=== PATIENT | female | born 1990 | race Caucasian/White ===

== ENCOUNTER 2019-09-07 14:40 | Emergency (ER) | payer OTHER ==
[2019-09-07] MEDS ORDERED: ONDANSETRON 4 MG TAB.RAPDIS PO ONE (15:28)
[2019-09-07] MEDS ORDERED: KETOROLAC TROMETHAMINE INJ/PF 30 MG/1 ML SDV IV ONE (15:28)
--- NOTE | 2019-09-07 15:32 | ER Document Report ---
ED Medical Screen (RME) - General Chief Complaint: Urinary Problem Stated Complaint: ABDOMINAL PAIN/BURNING DURING URINATION/BLOOD IN U Time Seen by Provider: 09/07/19 15:25 TRAVEL OUTSIDE OF THE [place] IN LAST 30 DAYS: No - HPI Notes: 09/07/19 15:28 Patient is a 29-year-old female with no significant past medical history who presents complaining of lower pelvic and lower abdominal pain that is pretty se erick and is worse with movement as well as bilateral flank pain that does not radiate. She has been having urinary burning as well with vaginal bleeding and odor. Denies . Denies fever. She does have nausea but no vomiting. Symptoms began yesterday. I have treated and performed a rapid initial assessment of this patient. A comprehensive ED assessment and evaluation of the patient, analysis of test results and completion of medical decision making process will be conducted by additional ED providers. PHYSICAL EXAMINATION: GENERAL: No acute respiratory distress, but patient appears to be in moderate discomfort in regards to her abdomen. Abdomen: Limited exam in triage, patient does have some mild guarding to her lower abdominal area/lower pelvic. She is tender to this area. Bilateral CVA tenderness noted. Vitals: Pulse 99 and O2 99% on RA. - Related Data Allergies/Adverse Reactions: Penicillins Allergy (Mild, Verified 09/07/19 15:24) latex Allergy (Verified 09/07/19 15:24) Past Medical History Pulmonary Medical History: Reports: Hx Asthma - Immunizations Immunizations up to date: Yes Hx Diphtheria, Pertussis, Tetanus Vaccination: Yes Physical Exam - Vital signs Vitals: Temp Pulse Resp BP Pulse Ox 98.3 F 123 H 20 115/87 H 83 L 09/07/19 15:22 09/07/19 15:22 09/07/19 15:22 09/07/19 15:22 09/07/19 15:22 Course - Vital Signs Vital signs: Temp Pulse Resp BP Pulse Ox 98.3 F 123 H 20 115/87 H 83 L 09/07/19 15:22 09/07/19 15:22 09/07/19 15:22 09/07/19 15:22 09/07/19 15:22
[2019-09-07 16:20] LABS: APPEARANCE,URINE SLIGHTLY-CLOUDY; BILIRUBIN,URINE NEGATIVE (NEGATIVE); COLOR,URINE YELLOW; GLUCOSE, URINE NEGATIVE (NEGATIVE); KETONES,URINE 20 mg/dL (NEGATIVE); LEUKOCYTE ESTERASE,URINE LARGE (NEGATIVE); NITRITE,URINE NEGATIVE (NEGATIVE); PROTEIN,URINE 100 mg/dL (NEGATIVE); URINE SPECIFIC GRAVITY 1.004; UROBILINOGEN,URINE NEGATIVE mg/dL (<2.0)
[2019-09-07 16:33] LABS: ALBUMIN 4.7 g/dL (3.5-5.0); ALKALINE PHOSPHATASE 69 U/L (38-126); ANION GAP 14 (5-19); ASPARTATE AMINO TRANSFERASE 20 U/L (14-36); BILIRUBIN,DIRECT 0.2 mg/dL (0.0-0.4); BILIRUBIN,TOTAL 0.7 mg/dL (0.2-1.3); BLOOD UREA NITROGEN 5 mg/dL (7-20); CALCIUM 9.9 mg/dL (8.4-10.2); CARBON DIOXIDE 28 mmol/L (22-30); CHLORIDE 99 mmol/L (98-107); GLUCOSE 83 mg/dL (75-110); TOTAL PROTEIN 8.6 g/dL (6.3-8.2)
[2019-09-07 16:35] LABS: ABSOLUTE BASOPHILS # (AUTO) 0.1 10^3/uL (0.0-0.2); ABSOLUTE LYMPHOCYTES (AUTO) 1.2 10^3/uL (0.5-4.7); ABSOLUTE MONOCYTES (AUTO) 0.8 10^3/uL (0.1-1.4); ABSOLUTE NEUT (AUTO) 14.7 10^3/uL (1.7-8.2); BASOPHILS % (AUTO) 0.3 % (0-2); EOSINOPHILS % (AUTO) 0.2 % (0-6); HEMATOCRIT 40.3 % (36.0-47.0); HEMOGLOBIN 13.8 g/dL (12.0-15.5); LYMPHOCYTES % (AUTO) 7.4 % (13-45); MEAN CORPUSCULAR HEMOGLOBIN 29.8 pg (27.0-33.4); MEAN CORPUSCULAR HGB CONC 34.3 g/dL (32.0-36.0); MEAN CORPUSCULAR VOLUME 87 fl (80-97); MONOCYTES % (AUTO) 4.5 % (3-13); PLATELET COUNT 324 10^3/uL (150-450); RED BLOOD COUNT 4.65 10^6/uL (3.72-5.28); RED CELL DISTRIBUTION WIDTH 12.7 % (11.5-14.0); SEGMENTED NEUTROPHILS % (AUTO) 87.6 % (42-78); TOTAL CELLS COUNTED % (AUTO) 100 %; WHITE BLOOD COUNT 16.8 10^3/uL (4.0-10.5)
[2019-09-07] MEDS ORDERED: NORMAL SALINE 1000 ML 1,000 ML IV ONE (16:36)
--- NOTE | 2019-09-07 16:37 | ER Document Report ---
ED General - General Chief Complaint: Urinary Problem Stated Complaint: ABDOMINAL PAIN/BURNING DURING URINATION/BLOOD IN U Time Seen by Provider: 09/07/19 15:25 Notes: Patient is a 29-year-old female, with a history of urinary tract infections and kidney stones who presents to the emergency department with a chief complaint of bilateral flank pain and dysuria. Symptoms started yesterday. Patient states it feels like a stabbing pain. Her last menstrual cycle was August 24. Patient admits to having some blood in her urine. TRAVEL OUTSIDE OF THE [place] IN LAST 30 DAYS: No - Related Data Allergies/Adverse Reactions: Penicillins Allergy (Mild, Verified 09/07/19 15:24) latex Allergy (Verified 09/07/19 15:24) Past Medical History - General Information source: Patient - Social History Smoking Status: Former Smoker Chew tobacco use (# tins/day): No Frequency of alcohol use: None Drug Abuse: None Family History: Arthritis, CAD, CVA, DM, Hyperlipidemia, Hypertension, Malignancy, Thyroid Disfunction Patient has suicidal ideation: No Patient has homicidal ideation: No Pulmonary Medical History: Reports: Hx Asthma - Immunizations Immunizations up to date: Yes Hx Diphtheria, Pertussis, Tetanus Vaccination: Yes Hx Pneumococcal Vaccination: 06/01/12 Review of Systems - Review of Systems Notes: REVIEW OF SYSTEMS: CONSTITUTIONAL : Denies recent illness. Denies recent unintentional weight loss. Denies fever, chills, or sweats. EENT: Denies eye, ear, throat, or mouth pain, discharge, or symptoms. Denies nasal or sinus congestion. CARDIOVASCULAR: Denies chest pain. RESPIRATORY: Denies shortness of breath, cough, congestion, difficulty breathing, or wheezing. GASTROINTESTINAL: Denies nausea, vomiting, and diarrhea. Denies abdominal pain. Denies constipation. GENITOURINARY: See HPI. MUSCULOSKELETAL: See HPI. Denies joint pain or swelling. SKIN: Denies rash, itchiness, or lesions HEMATOLOGIC : Denies easy bruising or bleeding. LYMPHATIC: Denies swollen, painful, enlarged glands. NEUROLOGICAL: Denies no numbness or tingling denies weakness. Denies headache. Denies altered mental status. Denies alteration in speech. PSYCHIATRIC: Denies stress, anxiety, alteration in sleep patterns, or depress ion. 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 All other systems reviewed and negative. Physical Exam - Vital signs Vitals: Temp Pulse Resp BP Pulse Ox 98.3 F 123 H 20 115/87 H 97 09/07/19 15:22 09/07/19 15:22 09/07/19 15:22 09/07/19 15:22 09/07/19 15:22 - Notes Notes: REVIEW OF SYSTEMS: CONSTITUTIONAL : Denies recent illness. Denies recent unintentional weight loss. Denies fever, chills, or sweats. EENT: Denies eye, ear, throat, or mouth pain, discharge, or symptoms. Denies nasal or sinus congestion. CARDIOVASCULAR: Denies chest pain. RESPIRATORY: Denies shortness of breath, cough, congestion, difficulty breathing, or wheezing. GASTROINTESTINAL: Denies nausea, vomiting, and diarrhea. Denies abdominal pain. Denies constipation. GENITOURINARY: See HPI. MUSCULOSKELETAL: Denies neck and back pain. Denies joint pain or swelling. SKIN: Denies rash, itchiness, or lesions HEMATOLOGIC : Denies easy bruising or bleeding. LYMPHATIC: Denies swollen, painful, enlarged glands. NEUROLOGICAL: Denies no numbness or tingling denies weakness. Denies headache. Denies altered mental status. Denies alteration in speech. PSYCHIATRIC: Denies stress, anxiety, alteration in sleep patterns, or depression. All other systems reviewed and negative. Course - Re-evaluation Re-evalutation: 09/07/19 18:18 Patient has 3+ epithelial and 4+ bacterial cells noted on her wet mount. She also has 4+ WBCs. She will be started on pelvic inflammatory disease with doxycycline and Flagyl. Received Rocephin and azithromycin here in the emergency department. This will also cover her urinary tract infection. CT of the abdomen pelvis shows that she has an interpolar 3 mm of nephrolithiasis in the left kidney. Patient states that she has had kidney stones in the past in the same area. Tachycardia has improved with IV fluids and pain medication. She also go home with Toradol for pain medication. She will follow-up with a primary care provider. She is moving back to the area and has not established a primary care. Follow-up precautions were given. Verbal discharge instructions were given to the patient. They verbalized understanding. They are stable for discharge. - Vital Signs Vital signs: Temp Pulse Resp BP Pulse Ox 98.4 F 95 16 117/67 100 09/07/19 18:01 09/07/19 18:01 09/07/19 18:01 09/07/19 18:01 09/07/19 18:01 - Laboratory Result Diagrams: 09/07/19 15:55 09/07/19 15:55 Laboratory results interpreted by me: 09/07/19 09/07/19 09/07/19 15:55 15:55 15:55 WBC 16.8 H Lymph % (Auto) 7.4 L Absolute Neuts (auto) 14.7 H Seg Neutrophils % 87.6 H BUN 5 L Total Protein 8.6 H Urine Protein 100 H Urine Ketones 20 H Urine Blood LARGE H Ur Leukocyte Esterase LARGE H Discharge - Discharge Clinical Impression: PID (pelvic inflammatory disease), Nephrolithiasis Condition: Stable Disposition: HOME, SELF-CARE Additional Instructions: Your are being treated for pelvic inflammatory disease. You are being started on 2 different antibiotics and you need to take these until you finish them. Please return if you have worsening pain, persistent vomiting, spike a fever greater than 101F, or have any other symptoms that are concerning to you. Please follow closely with you primary care physician or your [employer] at your earliest ability. Your urine shows findings consistent with a urinary tract infection. Please take all the antibiotics as directed even if your symptoms have improved. Please follow-up with your primary care physician as needed. Return to emergency room if you develop fever >101F, persistent vomiting, become lethargic, have severe pain in your sides, or any other symptoms that are concerning to you. You also have a 3 mm kidney stone that is stable inside your kidney. You can take Toradol, medication to help with pain. If you are unable to afford the Toradol, you can take ibuprofen 600 mg every 6 hours for your pain. Prescriptions: Ketorolac Tromethamine [Toradol 10 mg Tablet] 10 mg PO Q6HP PRN #20 tablet PRN Reason: Doxycycline Hyclate 100 mg PO BID 14 Days #28 capsule Metronidazole [Flagyl 500 mg Tablet] 500 mg PO Q6H #28 tablet
[2019-09-07] MEDS ORDERED: CEFTRIAXONE 1 GM/D5W RTU 1 GM/50 ML RTUPB IV ONE (17:09)
--- NOTE | 2019-09-07 17:34 | RADIOLOGY REPORT (SQ) ---
EXAM DESCRIPTION: CT ABD/PELVIS NO ORAL OR IV COMPLETED DATE/TIME: 09/07/2019 5:14 pm REASON FOR STUDY: flank pain COMPARISON: None. TECHNIQUE: CT scan of the abdomen and pelvis performed without intravenous or oral contrast. Images reviewed with lung, soft tissue, and bone windows. Reconstructed coronal and sagittal MPR images revi ewed. All images stored on PACS. All CT scanners at this facility use dose modulation, iterative reconstruction, and/or weight based d osing when appropriate to reduce radiation dose to as low as reasonably achievable (ALARA). [facility]: Dose Right [facility]: CareDose [facility]: Dose Right [facility]: Teradose 4D [facility]: Smart [employer] RADIATION DOSE: CT Rad equipment meets quality standard of care and radiation dose reduction techniq ues were employed. CTDIvol: 5.3 mGy. DLP: 275 mGy-cm.mGy. LIMITATIONS: None. FINDINGS: LOWER CHEST: No significant findings. No nodules or infiltrates. NON-CONTRASTED LIVER, SPLEEN, ADRENALS: Evaluation limited by lack of IV contrast. No identified sign ificant masses. PANCREAS: No masses. No peripancreatic inflammatory changes. GALLBLADDER: No identified stones by CT criteria. No inflammatory changes to suggest cholecystitis. RIGHT KIDNEY AND URETER: No suspicious masses. Assessment limited by lack of IV contrast. 3 mm nono bstructing interpolar region nephrolith. No hydronephrosis or hydroureter. LEFT KIDNEY AND URETER: No suspicious masses. Assessment limited by lack of IV contrast. No signifi cant calcifications. No hydronephrosis or hydroureter. AORTA AND RETROPERITONEUM: No aneurysm. No retroperitoneal masses or adenopathy. BOWEL AND PERITONEAL CAVITY: No obvious masses or inflammatory changes. No free fluid. APPENDIX: Normal. PELVIS, BLADDER, AND ABDOMINAL WALL:No abnormal masses. Trace amount of free fluid within the pelvis . Bladder normal. BONES: No significant findings. OTHER: No other significant finding. IMPRESSION: 3 mm nonobstructing right kidney interpolar region nephrolith. COMMENT: Quality ID # [id number]: Final reports with documentation of one or more dose reduction techniques (e.g., Automated exposure control, adjustment of the mA and/or kV according to patient size, use of iterative reconstruction technique) TECHNICAL DOCUMENTATION: JOB ID: [id number] [employer]- All Rights Reserved Reading location - IP/workstation name: [email or web address]
[2019-09-07 17:39] LABS: BACTERIA (WET MOUNT) 4+ BACTERIA SEEN; EPITHELIALS (WET MOUNT) 3+ EPITHELIALS SEEN; RBCS (WET MOUNT) FEW RBCS SEEN; T.VAGINALIS (WET MOUNT) NO TRICHOMONAS SEEN; WBCS (WET MOUNT) 4+ WBCS SEEN; YEAST (WET MOUNT) NO YEAST SEEN
[2019-09-07 18:02] VITALS: BP 117/67
[2019-09-07] MEDS ORDERED: AZITHROMYCIN 250 MG TABLET PO ONE (18:16)
[2019-09-07] MEDS ORDERED: ONDANSETRON ODT 4 MG TAB (6 TAB/ER DISP) PO PRN (18:25)
[2019-09-07 19:09] LABS: CHLAM PCR NOT DETECTED (NOT DETECT)
== END 2019-09-07 18:42 | disposition home or self-care (01) ==
LOC: ER 14:40
DX: N73.9 Female pelvic inflammatory disease, unspecified (principal); N20.0 Calculus of kidney; Z88.0 Allergy status to penicillin; Z91.040 Latex allergy status; Z87.442 Personal history of urinary calculi; Z87.440 Personal history of urinary (tract) infections
CPT/HCPCS: 99284; 96361; 96375; 96365; 36415; 87040; 87086; 87210; 83690; 85025; 81025; 87088; 80053; 81001; 87186; 87491; 87591; 74176; S0119; J1885; J7030; J0696

== ENCOUNTER 2019-10-15 13:25 | Emergency (ER) | payer OTHER, MEDICAID | END 2019-10-15 16:25 | disposition left against medical advice (07) | LOC: ER 13:25 | DX: Z53.21 Procedure and treatment not carried out due to patient leaving prior to being seen by health care provider (principal); F41.9 Anxiety disorder, unspecified ==

== ENCOUNTER 2020-02-25 09:11 | Emergency (ER) | payer MEDICAID, OTHER ==
[2020-02-25 09:37] LABS: ABSOLUTE EOSINOPHILS # (AUTO) 0.1 10^3/uL (0.0-0.6); ABSOLUTE LYMPHOCYTES (AUTO) 1.3 10^3/uL (0.5-4.7); ABSOLUTE MONOCYTES (AUTO) 0.6 10^3/uL (0.1-1.4); ABSOLUTE NEUT (AUTO) 9.7 10^3/uL (1.7-8.2); BASOPHILS % (AUTO) 0.4 % (0-2); EOSINOPHILS % (AUTO) 0.8 % (0-6); HEMATOCRIT 37.6 % (36.0-47.0); HEMOGLOBIN 12.9 g/dL (12.0-15.5); LYMPHOCYTES % (AUTO) 11.1 % (13-45); MEAN CORPUSCULAR HGB CONC 34.3 g/dL (32.0-36.0); MEAN CORPUSCULAR VOLUME 88 fl (80-97); MONOCYTES % (AUTO) 4.8 % (3-13); PLATELET COUNT 304 10^3/uL (150-450); RED CELL DISTRIBUTION WIDTH 13.3 % (11.5-14.0); SEGMENTED NEUTROPHILS % (AUTO) 82.9 % (42-78); TOTAL CELLS COUNTED % (AUTO) 100 %; WHITE BLOOD COUNT 11.7 10^3/uL (4.0-10.5)
[2020-02-25 09:46] LABS: APPEARANCE,URINE CLOUDY; BILIRUBIN,URINE NEGATIVE (NEGATIVE); COLOR,URINE YELLOW; GLUCOSE, URINE NEGATIVE (NEGATIVE); KETONES,URINE NEGATIVE (NEGATIVE); LEUKOCYTE ESTERASE,URINE LARGE (NEGATIVE); NITRITE,URINE NEGATIVE (NEGATIVE); PROTEIN,URINE 100 mg/dL (NEGATIVE); URINE SPECIFIC GRAVITY 1.004; UROBILINOGEN,URINE NEGATIVE mg/dL (<2.0)
[2020-02-25 10:13] LABS: ALBUMIN 3.7 g/dL (3.5-5.0); ALKALINE PHOSPHATASE 68 U/L (38-126); ANION GAP 5 (5-19); ASPARTATE AMINO TRANSFERASE 23 U/L (14-36); BLOOD UREA NITROGEN 9 mg/dL (7-20); CARBON DIOXIDE 28 mmol/L (22-30); CHLORIDE 105 mmol/L (98-107); GLUCOSE 91 mg/dL (75-110); POTASSIUM 4.2 mmol/L (3.6-5.0); TOTAL PROTEIN 7.2 g/dL (6.3-8.2)
[2020-02-25] MEDS ORDERED: NITROFURANTOIN MONOHYD/M-CRYST 100 MG CAPSULE PO ONE (10:48)
[2020-02-25] MEDS ORDERED: PHENAZOPYRIDINE HCL 100 MG TABLET PO ONE (10:48)
--- NOTE | 2020-02-25 10:50 | ER Document Report ---
ED GI/ - General Chief Complaint: Lower Abdominal Pain Stated Complaint: LEFT FLANK PAIN,BLOOD IN URINE Time Seen by Provider: 02/25/20 10:27 Notes: Patient is a 30-year-old female who presents emergency department with a chief complaint of urinary frequency. Patient reports developing symptoms yesterday. Patient states she woke up this morning noticed blood in the urine and increased lower pelvic pain. Patient denies fever, flank pain, vomiting. Patient reports she did use a new brand of condom on Sundays and unsure if this is was causing the urinary symptoms. Patient reports last menstrual cycle was 1 month ago. Patient denies vaginal discharge or bleeding. Patient does report low back pain. TRAVEL OUTSIDE OF THE [place] IN LAST 30 DAYS: No - Related Data Allergies/Adverse Reactions: Penicillins Allergy (Mild, Verified 02/25/20 09:17) latex Allergy (Verified 02/25/20 09:17) Past Medical History - General Information source: Patient - Social History Smoking Status: Former Smoker Chew tobacco use (# tins/day): No Frequency of alcohol use: None Drug Abuse: None Lives with: Family Family History: Arthritis, CAD, CVA, DM, Hyperlipidemia, Hypertension, Malignancy, Thyroid Disfunction Patient has homicidal ideation: No - Past Medical History Cardiac Medical History: Reports: None Pulmonary Medical History: Reports: Hx Asthma EENT Medical History: Reports: None Neurological Medical History: Reports: None Endocrine Medical History: Reports: None Renal/ Medical History: Reports: None Malignancy Medical History: Reports: None GI Medical History: Reports: None Musculoskeletal Medical History: Reports None Skin Medical History: Reports None Psychiatric Medical History: Reports: None Traumatic Medical History: Reports: None Infectious Medical History: Reports: None Surgical Hx: Negative - Immunizations Immunizations up to date: Yes Hx Diphtheria, Pertussis, Tetanus Vaccination: Yes Hx Pneumococcal Vaccination: 06/01/12 Review of Systems - Review of Systems Constitutional: No symptoms reported EENT: No symptoms reported Cardiovascular: No symptoms reported Respiratory: No symptoms reported Gastrointestinal: See HPI Genitourinary: See HPI Female Genitourinary: No symptoms reported Musculoskeletal: No symptoms reported Skin: No symptoms reported Hematologic/Lymphatic: No symptoms reported Neurological/Psychological: No symptoms reported Physical Exam - Vital signs Vitals: Temp Pulse Resp BP Pulse Ox 98.8 F 93 16 106/64 100 02/25/20 09:15 02/25/20 09:15 02/25/20 09:15 02/25/20 09:15 02/25/20 09:15 Interpretation: Normal - Notes Notes: GENERAL: Well-appearing, well-nourished and in no acute distress. HEAD: Atraumatic, normocephalic. EYES: Pupils equal round and reactive to light, extraocular movements intact, sclera anicteric, conjunctiva are normal. ENT: TMs normal, nares patent, oropharynx clear without exudates. Moist mucous membranes. NECK: Normal range of motion, supple without lymphadenopathy or JVD. LUNGS: Breath sounds clear to auscultation bilaterally and equal. No wheezes rales or rhonchi. HEART: Regular rate and rhythm without murmurs, rubs or gallops. ABDOMEN: Soft, mild suprapubic ttp, normoactive bowel sounds. No guarding, no rebound. No masses appreciated. BACK: No cervical, thoracic, lumbar midline tenderness. No saddle anesthesia, normal distal neurovascular exam. No CVA tenderness. GENITOURINARY: Deferred. EXTREMITIES: Normal range of motion, no pitting or edema. No clubbing or cyanosis. NEUROLOGICAL: Cranial nerves II through XII grossly intact. Normal speech, normal gait. PSYCH: Normal mood, normal affect. SKIN: Warm, Dry, normal turgor, no rashes or lesions noted. Course - Re-evaluation Re-evalutation: 02/25/20 12:31 Patient's physical exam is unremarkable. Patient is not tachycardic, hypotensive, febrile. Patient does have a large amount of WBCs and leukocytes within the urine. We will treat for urinary tract infection. I did discuss with the patient use of [id number] Azo to help treat her symptoms. Did discuss patient strict return precautions to include fever, vomiting, severe abdominal pain or any new worsening symptoms. Patient nontoxic-appearing and stable for discharge. - Vital Signs Vital signs: Temp Pulse Resp BP Pulse Ox 98 F 80 16 112/74 100 02/25/20 11:16 02/25/20 11:16 02/25/20 11:16 02/25/20 11:16 02/25/20 11:16 - Laboratory Result Diagrams: 02/25/20 09:30 02/25/20 09:30 Laboratory results interpreted by me: 02/25/20 02/25/20 09:30 09:30 WBC 11.7 H Lymph % (Auto) 11.1 L Absolute Neuts (auto) 9.7 H Seg Neutrophils % 82.9 H Urine Protein 100 H Urine Blood LARGE H Ur Leukocyte Esterase LARGE H 02/25/20 12:31 Patient's blood work showed no leukocytosis of 11.7, electrolyte derangement, urine hCG was negative. Patient does have large amount of leukocytosis with greater than 182 WBCs. Laboratory 02/25/20 02/25/20 02/25/20 09:30 09:30 09:30 WBC 11.7 H RBC 4.30 Hgb 12.9 Hct 37.6 MCV 88 MCH 30.0 MCHC 34.3 RDW 13.3 Plt Count 304 Lymph % (Auto) 11.1 L Boyd % (Auto) 4.8 Eos % (Auto) 0.8 Baso % (Auto) 0.4 Absolute Neuts (auto) 9.7 H Absolute Lymphs (auto) 1.3 Absolute Monos (auto) 0.6 Absolute Eos (auto) 0.1 Absolute Basos (auto) 0.0 Seg Neutrophils % 82.9 H Sodium 137.5 Potassium 4.2 Chloride 105 Carbon Dioxide 28 Anion Gap 5 BUN 9 Creatinine 0.58 Est GFR ( Amer) > 60 Est GFR (MDRD) Non-Af > 60 Glucose 91 Calcium 9.0 Total Bilirubin 1.0 Direct Bilirubin 0.0 Neonat Total Bilirubin Not Reportable Neonat Direct Bilirubin Not Reportable Neonat Indirect Bili Not Reportable AST 23 ALT 14 Alkaline Phosphatase 68 Total Protein 7.2 Albumin 3.7 Lipase 66.9 Serum HCG, Qual NEGATIVE Urine Color Urine Appearance Urine pH Ur Specific [place] Urine Protein Urine Glucose (UA) Urine Ketones Urine Blood Urine Nitrite Urine Bilirubin Urine Urobilinogen Ur Leukocyte Esterase Urine WBC (Auto) Urine RBC (Auto) Urine Bacteria (Auto) Urine WBC Clumps Squamous Epi Cells Auto U Non-Squamous Epis Auto Urine Ascorbic Acid 02/25/20 09:30 WBC RBC Hgb Hct MCV MCH MCHC RDW Plt Count Lymph % (Auto) Boyd % (Auto) Eos % (Auto) Baso % (Auto) Absolute Neuts (auto) Absolute Lymphs (auto) Absolute Monos (auto) Absolute Eos (auto) Absolute Basos (auto) Seg Neutrophils % Sodium Potassium Chloride Carbon Dioxide Anion Gap BUN Creatinine Est GFR ( Amer) Est GFR (MDRD) Non-Af Glucose Calcium Total Bilirubin Direct Bilirubin Neonat Total Bilirubin Neonat Direct Bilirubin Neonat Indirect Bili AST ALT Alkaline Phosphatase Total Protein Albumin Lipase Serum HCG, Qual Urine Color YELLOW Urine Appearance CLOUDY Urine pH 8.0 Ur Specific [place] 1.004 Urine Protein 100 H Urine Glucose (UA) NEGATIVE Urine Ketones NEGATIVE Urine Blood LARGE H Urine Nitrite NEGATIVE Urine Bilirubin NEGATIVE Urine Urobilinogen NEGATIVE Ur Leukocyte Esterase LARGE H Urine WBC (Auto) >182 Urine RBC (Auto) 28 Urine Bacteria (Auto) 1+ Urine WBC Clumps MANY Squamous Epi Cells Auto 4 U Non-Squamous Epis Auto 3 Urine Ascorbic Acid NEGATIVE Discharge - Discharge Clinical Impression: Cystitis Urinary tract infection Qualifiers: Urinary tract infection type: acute cystitis Hematuria presence: with hematuria Qualified Code(s): N30.01 - Acute cystitis with hematuria Condition: Stable Disposition: HOME, SELF-CARE Instructions: Nitrofurantoin ([facility]), Urinary Anesthetic Agent ([facility]) Additional Instructions: URINARY TRACT INFECTION: Your evaluation indicates that you have a urinary tract infection. This is due to germs growing in the bladder. This is a common problem. This infection usually responds quickly to antibiotics. Your antibiotic should be taken exactly as prescribed. Drink plenty of fluids -- three to four quarts a day. Occasionally, a bladder anesthetic will be prescribed to help stop the feeling of urgency until the antibiotic has a chance to clear the infection. This may cause your urine to be dark orange. Certain urine infections require a culture. If the doctor obtained a culture, the results will be back in two days. You should call to see if a change in treatment is needed. A repeat urinalysis after you finish treatment is often recommended. The physician will let you know if further testing is required. Call the doctor if you develop fever, chills, flank pain, inability to urinate, or blood in the urine. ANTIBIOTIC THERAPY: You have been given an antibiotic prescription. It's important that you take all the medication, unless instructed otherwise by your physician. Failure to complete the entire course can result in relapse of your condition. Common side effects of antibiotics include nausea, intestinal cramping, or diarrhea. Women may develop vaginal yeast infections, and babies can get yeast (thrush) in the mouth following the use of antibiotics. Contact your physician if you develop significant side effects from this medication. Allergy to this antibiotic can result in hives, wheezing, faintness, or itching. If symptoms of allergy occur, stop the medication and call the doctor. NITROFURANTOIN (MACRODANTIN, MACROBID): You have received a prescription for nitrofurantoin (Macrodantin). This antibiotic is used for urinary tract infections. Women who are or nursing should notify the physician before taking this medicine. If you have ever had a problem caused by this medication in the past, be sure the physician is aware of it. Common side effects of this medicine include nausea, vomiting, or decreased appetite. Notify your physician if these side effects become severe. Immediately stop this medicine and call the physician if you develop cough, shortness of breath, chest pain, weakness, jaundice (yellow color of the skin and whites of the eyes), or a skin rash. URINARY ANESTHETIC AGENT: You have been given a medication (Pyridium) for urinary tract discomfort. This medicine numbs the lining of the bladder and urethra, resulting in less pain, burning, and urgency. You may take it as needed, according to instructions. When the symptoms resolve, you can stop this medication (be sure to continue any other medications the doctor has given you). This medicine turns the urine a dark orange. It may stain underwear. Occasionally, it can cause nausea. Return for evaluation if there are any unexpected effects, such as itching, hives, or shortness of breath. FOLLOW-UP CARE: If you have been referred to a physician for follow-up care, call the physicians office for an appointment as you were instructed or within the next two days. If you experience worsening or a significant change in your symptoms, notify the physician immediately or return to the Emergency Department at any time for re-evaluation. Prescriptions: Nitrofurantoin Monohyd/M-Cryst [Macrobid 100 mg Capsule] 100 mg PO BID 7 Days #14 cap Forms: Return to Work
[2020-02-25 11:16] VITALS: BP 112/74
== END 2020-02-25 11:16 | disposition home or self-care (01) ==
LOC: ER 09:11
DX: N30.01 Acute cystitis with hematuria (principal); R10.30 Lower abdominal pain, unspecified; R35.0 Frequency of micturition; Z88.0 Allergy status to penicillin; Z91.040 Latex allergy status
CPT/HCPCS: 99284; 36415; 87086; 83690; 84703; 85025; 87088; 80053; 81001; J3490; J8499; 87186